=== PATIENT | male | born 1990 | race Caucasian/White ===

== ENCOUNTER 2017-07-08 21:09 | Emergency (ER) | payer SELFPAY ==
[2017-07-08 21:21] VITALS: BP 135/98; PULSE 66; TEMP 98.4; BMI 31.0
[2017-07-09] MEDS ORDERED: KETOROLAC TROMETHAMINE 30 MG/1 ML VIAL IVPUSH ONE (00:26)
[2017-07-09] MEDS ORDERED: KETOROLAC TROMETHAMINE 30 MG/1 ML VIAL ONE (00:35)
[2017-07-09 00:58] LABS: BASO % 0.3 % (0-2.0); EOS % 0.2 % (0-4.5); LYMPH # 1.7 (8-40); MEAN CELL VOLUME 88.3 fl (80-96); MEAN PLT VOLUME 7.7 fl (7.5-11.1); MONO # 0.5 # (3.8-10.2); NEUT # 6.8 # (42.8-82.8); NEUT % 75.9 % (42.8-82.8); PLATELET COUNT 355 K/MM3 (134-434); RDW 12.5 % (11.9-15.9)
[2017-07-09 01:23] LABS: ANION GAP 11 (8-16); BILIRUBIN,TOTAL 0.4 mg/dL (0.2-1.0); CALCIUM 9.2 mg/dL (8.5-10.1); CO2 26 mmol/L (21-32); CREATININE 0.7 mg/dL (0.7-1.3); GLUCOSE,RANDOM 107 mg/dL (74-106); SGOT/AST 33 U/L (15-37); SGPT/ALT 83 U/L (12-78)
[2017-07-09 01:24] LABS: ALK PHOS 75 U/L (45-117)
[2017-07-09 02:19] LABS: URINE APPEARANCE SLCLOUDY; URINE BILIRUBIN NEGATIVE (NEGATIVE); URINE BLOOD NEGATIVE (NEGATIVE); URINE COLOR YELLOW; URINE GLUCOSE (UA) NEGATIVE (NEGATIVE); URINE KETONE NEGATIVE (NEGATIVE); URINE LEUK ESTERASE NEGATIVE (NEGATIVE); URINE NITRITE NEGATIVE (NEGATIVE); URINE PROTEIN NEGATIVE (NEGATIVE); URINE UROBILINOGEN NEGATIVE mg/dL (0.2-1.0)
--- NOTE | 2017-07-09 04:27 | PDOC ---
History of Present Illness - General Chief Complaint: Pain Stated Complaint: PAIN Time Seen by Provider: 07/09/17 00:31 History Source: Patient Exam Limitations: No Limitations - History of Present Illness Initial Comments: 07/08/17 Patient is a 27 year old male with no medical problems complaining of left flank pain since yesterday. States pain is gradual in onset now 7/10 sharp, continuous. Denies any nausea, vomiting, fever, chills, constipation, diarrhea. Had a normal bowel movement today. No prior episodes of this type of pain. Denies any injury, testicular pain, no penile discharge. PMHX: as above PSOCHX: neg cig, drug, etoh ALL: NKDA GENERAL/CONSTITUTIONAL: [No fever or chills. No weakness. No weight change.] HEAD, EYES, EARS, NOSE AND THROAT: [No change in vision. No ear pain or discharge. No sore throat.] CARDIOVASCULAR: [No chest pain or shortness of breath.] RESPIRATORY: [No cough, wheezing, or hemoptysis.] GASTROINTESTINAL: [No nausea, vomiting, diarrhea or constipation. No rectal bleeding.] GENITOURINARY: [No dysuria, frequency, or change in urination.] MUSCULOSKELETAL: [No joint or muscle swelling or pain. No neck or back pain.] SKIN AND BREASTS: [No rash or easy bruising.] NEUROLOGIC: [No headache, vertigo, loss of consciousness, or loss of sensation.] PSYCHIATRIC: [No depression or anxiety.] ENDOCRINE: [No increased thirst. No abnormal weight change.] HEMATOLOGIC/LYMPHATIC: [No anemia, easy bleeding, or history of blood clots.] ALLERGIC/IMMUNOLOGIC: [No hives or skin allergy. No latex allergy.] GENERAL: [The patient is awake, alert, and fully oriented, in mild distress.] HEAD: [Normal with no signs of trauma.] EYES: [Pupils equal, round and reactive to light, extraocular movements intact, sclera anicteric, conjunctiva clear.] ENT: [Ears normal, nares patent, oropharynx clear without exudates. Moist mucous membranes.] NECK: [Normal range of motion, supple without lymphadenopathy, JVD, or masses.] LUNGS: [Breath sounds equal, clear to auscultation bilaterally. No wheezes, and no crackles.] HEART: [Regular rate and rhythm, normal S1 and S2 without murmur, rub.] ABDOMEN: [Soft, (+) tenderness to the left flank, normoactive bowel sounds. No guarding, no rebound. No masses, on CVAT.] EXTREMITIES: [Normal range of motion, no edema. No clubbing or cyanosis. No cords, erythema, or tenderness.] NEUROLOGICAL: [Cranial nerves II through XII grossly intact. Normal speech, normal gait.] PSYCH: [Normal mood, normal affect.] SKIN: [Warm, Dry, normal turgor, no rashes or lesions noted.] Past History - Past Medical History Allergies/Adverse Reactions: Allergies Allergy/AdvReac Type Severity Reaction Status Date / Time No Known Allergies Allergy Verified 07/08/17 21:19 Home Medications: Ambulatory Orders NK [No Known Home Medication] 07/08/17 COPD: No - Suicide/Smoking/Psychosocial Hx Smoking History: Never smoked *Physical Exam - Vital Signs Last Vital Signs Temp Pulse Resp BP Pulse Ox 98.4 F 66 18 135/98 99 07/08/17 21:19 07/08/17 21:19 07/08/17 21:19 07/08/17 21:19 07/08/17 21:19 ED Treatment Course - LABORATORY CBC & Chemistry Diagram: 07/09/17 00:46 07/09/17 00:46 - ADDITIONAL ORDERS Additional order review: Laboratory Results 07/09/17 07/09/17 02:13 00:46 Sodium 138 Potassium 4.4 Chloride 101 Carbon Dioxide 26 Anion Gap 11 BUN 11 Creatinine 0.7 Creat Clearance w eGFR > 60 Random Glucose 107 H Calcium 9.2 Total Bilirubin 0.4 AST 33 ALT 83 H Alkaline Phosphatase 75 Total Protein 8.0 Albumin 4.0 Lipase 91 Urine Color Yellow Urine Appearance Slcloudy Urine pH 7.0 Ur Specific [place] 1.025 Urine Protein Negative Urine Glucose (UA) Negative Urine Ketones Negative Urine Blood Negative Urine Nitrite Negative Urine Bilirubin Negative Urine Urobilinogen Negative 07/09/17 00:46 RBC 5.32 MCV 88.3 MCHC 34.0 RDW 12.5 MPV 7.7 Neutrophils % 75.9 Lymphocytes % 18.6 Monocytes % 5.0 Eosinophils % 0.2 Basophils % 0.3 - RADIOLOGY Radiology Studies Ordered: Category Date Time Status ABDOMEN & PELVIS CT W/O CONTR [CT] Stat CT Scan 07/09/17 00:26 Taken - Medications Given in the ED: ED Medications Discontinued Medications Generic Name Dose Route Start Last Admin Trade Name Maria T PRN Reason Stop Dose Admin Ketorolac Tromethamine 30 mg 07/09/17 00:26 07/09/17 00:46 Toradol Injection - IVPUSH 07/09/17 00:27 30 mg ONCE ONE Administration Medical Decision Making - Medical Decision Making 07/09/17 04:19 Patient is a 27 year old male with no pmhx c/o left sided abd pain x 1 days, with no assoc symptoms. No h/o kidney stone but will r/o stone. Labs, toradol, CTAP noncon. Patient Name: JOHN HOLLIDAY THIS IS A PRELIMINARY REPORT FROM [facility] DATE OF SERVICE: 2017-07-09 01:13:18 IMAGES: 640 EXAM: CT abdomen and pelvis without contrast HISTORY: Right flank pain COMPARISON: None. FINDINGS: Negative for right or left urinary tract stone or obstruction. No bowel obstruction, free air, or free fluid. Normal appendix. Negative for diverticulitis or colitis. Enlarged fatty liver. Normal spleen. Normal pancreas. Normal adrenal glands. No obvious gallbladder abnormalities. THIS DOCUMENT HAS BEEN ELECTRONICALLY SIGNED Alexx Fontaine MD 07/09/2017 02:10 EST M.D. Please call [facility] [phone] ([phone]) with questions. INTERPRETING RADIOLOGIST: Alexx Fontaine MD Electronically Signed: Jul 09, 2017 02:11AM EST 07/09/17 04:28 07/09/17 04:44 labs and diagnostics d/w patient. no acute finding. will discharge patient inst to use tylenol and motrin for pain I discussed the physical exam findings, ancillary test results and final diagnoses with the patient. I answered all of the patient's questions. The patient was satisfied with the care received and felt comfortable with the discharge plan and treatment plan. The Patient agrees to follow up with the primary care physician within 24-72 hours. *DC/Admit/Observation/Transfer Diagnosis at time of Disposition: Abdominal pain Qualifiers: Abdominal location: left upper quadrant Qualified Code(s): R10.12 - Left upper quadrant pain - Discharge Dispostion Disposition: HOME Condition at time of disposition: Stable - Referrals Referrals: [facility] [Provider Group] - Patient Instructions Printed Discharge Instructions: DI for Abdominal Pain-Adult Additional Instructions: Your Discharge Instructions: You must call primary care physician within 24 hours to arrange follow-up. Return to the Emergency Department with any new, persistent or worsening symptoms, for fever, chills, SOB, dizziness or any other concerning changes that may occur. Continue Tylenol and Motrin for pain, also try a laxative. - Post Discharge Activity
[2017-07-09 12:16] LABS: URINE LEUK ESTERASE Negative (NEGATIVE)
== END 2017-07-09 04:59 | disposition home or self-care (01) ==
LOC: JER 21:09
PROC: 3E0333Z Introduction of Anti-inflammatory into Peripheral Vein, Percutaneous Approach (ICD-10-PCS; principal; 2017-07-08)
DX: R10.12 Left upper quadrant pain (principal)
CPT/HCPCS: 36415; 74176-TC; 80053; 81003; 83690; 85025; 99282-25